=== PATIENT | female | born 1995 | race Caucasian/White ===

== ENCOUNTER → 2016-09-10 | Outpatient (CLI) | payer OTHER ==
[2016-09-10 11:40] LABS: ADJUSTED CALCIUM 9.1 mg/dL (8.4-10.2); ALANINE AMINOTRANSFERASE 27 U/L (9-52); ALBUMIN 4.4 gm/dL (3.5-5.0); ALKALINE PHOSPHATASE 71 U/L (50-136); ANION GAP 12 mmol/L (7-16); BASO % 0.3 % (0.0-2.0); BILIRUBIN,TOTAL 0.3 mg/dL (0.0-1.0); BLOOD UREA NITROGEN 11 mg/dL (7-17); CALCIUM 9.4 mg/dL (8.4-10.2); CARBON DIOXIDE 24 mmol/L (22-30); CHLORIDE 104 mmol/L (98-107); CREATININE, serum 0.65 mg/dL (0.52-1.25); EOS # 0.1 (0.0-0.7); EOS % 1.1 % (0-4.0); GLUCOSE 107 mg/dL (74-106); GRAN # 5.4 (1.4-6.5); GRAN % 67.4 % (42.2-75.2); HEMATOCRIT 39.7 % (37.0-47.0); LYMPH # 1.9 (1.2-3.4); LYMPH % 23.9 % (20.0-51.0); MEAN CELL VOLUME 90 fl (80.0-100.0); MEAN CORPUSCULAR HEMOGLOBIN 29 pg (27.0-31.0); MEAN CORPUSCULAR HGB CONC 33 g/dl (33.0-37.0); MEAN PLATELET VOLUME 10.4 fl (7.4-10.4); MONO # 0.6 (0.1-0.6); MONO % 6.9 % (1.7-9.3); PLATELET COUNT 340 K/mm3 (130-400); POTASSIUM 4.3 mmol/L (3.4-5.0); RED BLOOD COUNT 4.42 M/mm3 (4.10-5.30); REDCELL DISTRIBUTION WIDTH-CV 12.9 % (11.5-14.5); SODIUM 141 mmol/L (137-145); TOTAL PROTEIN 7.8 gm/dL (6.4-8.2); WHITE BLOOD COUNT 7.9 K/mm3 (4.8-10.8)
[2016-09-10 11:52] LABS: PH 7 (5-8); URINE APPEARANCE Hazy; URINE BACTERIA None Seen /hpf; URINE BILIRUBIN Negative (NEGATIVE); URINE BLOOD Negative (NEGATIVE); URINE COLOR Yellow; URINE GLUCOSE Negative (NEGATIVE); URINE KETONE Negative (NEGATIVE); URINE RBC 0-2 /hpf; URINE UROBILINOGEN Negative (NEGATIVE); URINE WBC 0-2 /hpf
[2016-09-10 12:12] LABS: TROPONIN-I < 0.012 ng/mL (0.000-0.034)
== END ==
LOC: COL.LAB 10:37
PROVIDERS: Family Medicine
DX: R00.0 Tachycardia, unspecified (principal)

== ENCOUNTER 2017-07-14 20:25 | Outpatient (CLI) | payer OTHER ==
[~2017-07-14] VITALS: Ht 170.2 cm; Wt 109.1 kg
[2017-07-14 20:55] VITALS: BP 116/74; PULSE 82; TEMP 98.8
[2017-07-14] MEDS ORDERED: PRENATAL MVI (20:59)
== END 2017-07-14 21:30 | disposition home or self-care (01) ==
LOC: LDRO 20:25 → LDR 20:50 → LDRO 21:30
DX: O36.8130 Decreased fetal movements, third trimester, not applicable or unspecified (principal); Z3A.29 29 weeks gestation of pregnancy
CPT/HCPCS: OP

== ENCOUNTER 2017-09-18 19:55 | Outpatient (CLI) | payer OTHER ==
[~2017-09-18] VITALS: Ht 170.2 cm; Wt 119.1 kg
[~2017-09-18 19:55] MED LIST: PRENATAL MVI
[2017-09-18 20:11] VITALS: BP 129/79; PULSE 71; TEMP 98.3
[2017-09-18] MEDS ORDERED: ZOLOFT 50MG50 MG PO (20:17)
== END 2017-09-18 20:55 | disposition home or self-care (01) ==
LOC: LDRO 19:55
DX: O36.8130 Decreased fetal movements, third trimester, not applicable or unspecified (principal); Z3A.39 39 weeks gestation of pregnancy

== ENCOUNTER 2017-09-23 22:00 | Inpatient (IN) | payer OTHER ==
[~2017-09-23] VITALS: Ht 170.2 cm; Wt 119.1 kg
[2017-09-23 22:00] VITALS: BP 142/91; PULSE 71; TEMP 98.6
[~2017-09-23 22:00] MED LIST changes: +ZOLOFT 50MG50 MG PO
[2017-09-23 22:30] VITALS: BP 142/91; PULSE 71; TEMP 98.6
[2017-09-23 23:00] VITALS: BP 142/91; BP 147/81; PULSE 68; PULSE 71; TEMP 98.6
[2017-09-23 23:30] VITALS: BP 129/74; PULSE 71
[2017-09-24] VITALS (46 sets, daily range): BP systolic 104–148; BP diastolic 57–91; PULSE 67–105; TEMP 97.5–98.6
[2017-09-24 00:14] LABS: BASO % 0.2 % (0.0-2.0); EOS # 0.1 (0.0-0.7); EOS % 0.7 % (0-4.0); GRAN # 6.3 (1.4-6.5); GRAN % 66.8 % (42.2-75.2); HEMATOCRIT 33.4 % (37.0-47.0); HEMOGLOBIN 10.9 g/dl (12.5-16.0); LYMPH # 2.1 (1.2-3.4); LYMPH % 22.4 % (20.0-51.0); MEAN CELL VOLUME 87 fl (80.0-100.0); MEAN CORPUSCULAR HEMOGLOBIN 28 pg (27.0-31.0); MEAN CORPUSCULAR HGB CONC 33 g/dl (33.0-37.0); MEAN PLATELET VOLUME 11.4 fl (7.4-10.4); MONO # 0.9 (0.1-0.6); MONO % 9.4 % (1.7-9.3); PLATELET COUNT 270 K/mm3 (130-400); RED BLOOD COUNT 3.85 M/mm3 (4.10-5.30); REDCELL DISTRIBUTION WIDTH-CV 13.7 % (11.5-14.5)
[2017-09-25 05:45] VITALS: BP 132/73; PULSE 82; TEMP 98
[2017-09-25 07:39] VITALS: BP 142/82; PULSE 83; TEMP 98.4
[2017-09-25 20:05] VITALS: BP 144/80; PULSE 98; TEMP 98.7
[2017-09-26 00:35] VITALS: BP 136/77; PULSE 67
[2017-09-26 07:48] VITALS: BP 131/79; PULSE 80; TEMP 98.3
[2017-09-26] MEDS ORDERED: IBU800 M1 PO (08:47)
== END 2017-09-26 10:25 | disposition home or self-care (01) | DRG 775 ==
LOC: LDRO 22:00 → OB 22:01 → LDR 22:01 → OB 09-24 12:30
PROVIDERS: Obstetrics & Gynecology
PROC: 10E0XZZ Delivery of Products of Conception, External Approach (ICD-10-PCS; principal; 2017-09-24)
PROC: 0HQ9XZZ Repair Perineum Skin, External Approach (ICD-10-PCS; 2017-09-24)
DX: O62.1 Secondary uterine inertia (principal); Z68.41 Body mass index [BMI] 40.0-44.9, adult; O70.0 First degree perineal laceration during delivery; Z3A.39 39 weeks gestation of pregnancy; Z37.0 Single live birth; Z22.330 Carrier of Group B streptococcus; O99.344 Other mental disorders complicating childbirth; F41.9 Anxiety disorder, unspecified; O99.214 Obesity complicating childbirth
CPT/HCPCS: J2590; J2795; J3370; J7050; J7120